=== PATIENT | male | born 1995 | race Caucasian/White ===

== ENCOUNTER 2021-09-16 08:21 | Emergency (ER) | payer OTHER, SELFPAY ==
--- NOTE | 2021-09-16 08:22 | ED.NAVMDI ---
HPI - Nausea/Vomiting/Diarrhea General Chief complaint: Nausea/Vomiting/Diarrhea Stated complaint: diahrrea fever abdo pain Time Seen by Provider: 09/16/21 08:22 Source: patient and RN notes reviewed History of Present Illness HPI Narrative: Patient is a 26-year-old male who presents the urgent care with complaints of diarrhea and abdominal pain. Patient states the abdominal pain does subside after he has a bowel movement. Patient denies of any nausea or vomiting. Patient states that it started after eating Thai 4 days ago. Patient states that he has been taking laxatives for the last 2 days. Denies of any blood in the stool. No other acute complaints. No acute distress noted. Patient aware of the plan of care. Some parts of this dictation were generated by voice recognition software and may contain typographical and/or grammatical inaccuracies. Related Data Home Medications Medication Instructions Recorded Confirmed No Home Medications 09/16/21 09/16/21 Allergies Allergy/AdvReac Type Severity Reaction Status Date / Time No Known Allergies Allergy Verified 09/16/21 08:38 Review of Systems Review of Systems: CONSTITUTIONAL: Denies fever, chills, or sweats. EYES: Denies visual changes, redness, or discharge. ENT: Denies rhinorrhea, congestion, sore throat, or otalgia. CARDIOVASCULAR: Denies chest pain, palpitations, or edema. RESPIRATORY: Denies cough or dyspnea. GASTROINTESTINAL: Reports of intermittent abdominal cramping with diarrhea GENITOURINARY: Denies dysuria or hematuria. SKIN: Denies rash or itching. MUSCULOSKELETAL: Denies back pain, joint pain, or myalgia. NEUROLOGIC: Denies headache, numbness, or weakness. All other systems reviewed are negative, except as documented in HPI. PMFSH Comments At the time of my signature, I reviewed and agree with the nursing past medical, surgical, social, and family history. There is no relevant family history pertinent to the patient complaint. Exam Narrative: GENERAL: This is a well-nourished, well-developed patient, in no apparent distress. HEAD: normocephalic, atraumatic. EYES: PERRL. Sclera clear/white. Vision is grossly intact. EARS: External ears normal NOSE: External nose normal with no obvious nasal discharge, nares without redness, no rhinorrhea. THROAT: Mucous membranes moist NECK: Neck supple CARDIOVASCULAR: Regular rate and rhythm without murmurs, gallops, or rubs. RESPIRATORY: Clear to auscultation. Breath sounds equal bilaterally. No wheezes, rales, or rhonchi. GASTROINTESTINAL: Abdomen soft, mild diffuse tenderness without guarding, nondistended. Bowel sounds are active. SKIN: warm, intact with no suspicious lesions or rash, good texture and turgor. NEURO: awake, alert, and oriented to person, place and time. There were no obvious focal neurologic abnormalities. EXTREMITIES: No clubbing, cyanosis, or edema. BACK: Nontender without deformity or crepitance. No flank tenderness. Course Course Level of Care: Express Care Visit Vital Signs Vital signs: Vital Signs Temperature 98.1 F 09/16/21 08:28 Pulse Rate 92 09/16/21 08:28 Respiratory Rate 16 09/16/21 08:28 Blood Pressure 145/75 H 09/16/21 08:28 Pulse Oximetry 97 09/16/21 08:28 Temperature 98.1 F 09/16/21 08:28 Pulse Rate 92 09/16/21 08:28 Respiratory Rate 16 09/16/21 08:28 Blood Pressure 145/75 H 09/16/21 08:28 Pulse Oximetry 97 09/16/21 08:28 Reviewed-patient is informed that they may have pre-hypertension or hypertension based on a blood pressure reading in the department. I recommend the patient call the primary care provider listed on their discharge instructions or a physician of their choice this week to arrange follow-up for further evaluation of possible pre-hypertension or hypertension. MDM - Nausea/Vomiting/Diarrhea MDM Narrative Medical decision making narrative: Advised the patient to use Imodium or Pepto-Bismol [id number] for symptom
[2021-09-16 08:28] VITALS: BP 145/75; PULSE 92; RESP 16; TEMP 36.7; O2SAT 97
== END 2021-09-16 08:54 | disposition home or self-care (01) ==
PROVIDERS: Emergency Provider Nurse Practitioner Family
DX: K52.9 Noninfective gastroenteritis and colitis, unspecified (principal)
CPT/HCPCS: 99211; G0463